=== PATIENT | male | born 1950 | race Hispanic/Latino ===

== ENCOUNTER 2024-07-11 13:22 | Emergency (ER) | payer OTHER ==
--- NOTE | 2024-07-11 14:19 | RAD REPORT ---
EXAMINATION: CT HEAD WITHOUT CONTRAST CT CERVICAL SPINE WITHOUT CONTRAST CLINICAL INDICATION: Head and neck injury status post fall. Head and neck pain TECHNIQUE: Axial CT images from the skull base to the vertex without intravenous contrast. Axial CT i mages through the cervical spine were obtained without intravenous contrast. Sagittal and coronal reformatted images were created from the data set. Coronal and sagittal reformatted images were creat ed from the data set. One or more of the following dose reduction techniques were used: Automated exposure control, adjustment of the mA and/or kV according to patient size, and/or iterative reconstr uction. Unless otherwise specified, incidental findings do not require dedicated imaging follow-up. [id number]. Comparison: none FINDINGS: Intracranial bleed not noted. Ventricles are normal in caliber. No significant hypodensity within the brain No extra-axial fluid collection. No fluid within the sinuses/mastoids No fracture or dislocation is seen involving the cervical spine. Mild posterior subluxation C4 on C5, C5 on C6 and C6-C7. 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 If the patient continues to have symptoms to suggest acute [employer]OPMENT [employer]/spinal pathology then MRI would be rec ommended
[2024-07-11] MEDS ORDERED: MORPHINE *EXTENDED RELEASE* 15 MG TAB PO ONE (14:28)
[2024-07-11] MEDS ORDERED: TDAP (DIPHTH,PERTUSS(ACELL),TET VAC) 0.5 ML VIAL IMVAC ONE (14:28)
--- NOTE | 2024-07-11 14:36 | RAD REPORT ---
Exam:Hip Left 2 View HISTORY: Left hip pain FINDINGS: No fracture or dislocation seen If the patient continues to have symptoms to suggest an occult fracture then MRI would be recommended
--- NOTE | 2024-07-11 14:37 | RAD REPORT ---
Exam:Knee Left 3 View HISTORY: Left knee pain FINDINGS: No fracture or dislocation seen Moderate to marked osteoarthritis involves slightly. Mild lateral subluxation of tibia on the femur. [id number] joint effusion
--- NOTE | 2024-07-11 14:38 | RAD REPORT ---
Exam:Ankle Left 3 View HISTORY: left ankle pain FINDINGS: No fracture or dislocation is seen Large calcaneal spurs
--- NOTE | 2024-07-11 16:41 | EDPHYS ---
Physician Documentation [facility] Name: Lauro Lees Jr Age: 74 yrs Sex: Male : 1950 Arrival Date: 07/11/2024 Time: 13:22 Bed 19 Private MD: ED Physician James Greene HPI: 07/11 16:30 This 74 yrs old Male presents to ER via Wheelchair with complaints of Fall ms3 Injury. 16:30 74-year-old male with no past medical history presents to the emergency department ms3 after tripping over the curb and falling. Patient states he is having left ankle, left hip, left knee pain. Patient states he did strike his head on the building.. Historical: - Allergies: 13:57 No Known Allergies; iw - Immunization history:: Adult Immunizations up to date. - Infectious Disease History:: Denies. - Social history:: Smoking status: Patient denies any tobacco usage or history of. ROS: 16:30 Constitutional: Negative for fever, and chills. Neck: Negative for injury, pain, and ms3 swelling, Cardiovascular: Negative for chest pain, and palpitations. Respiratory: Negative for shortness of breath, cough, wheezing, and pleuritic chest pain, Abdomen/GI: Negative for abdominal pain, nausea, vomiting, diarrhea, and constipation, 16:30 MS/extremity: Positive for pain, tenderness, Exam: 16:30 Constitutional: This is a well developed, well nourished patient who is awake, alert, ms3 and in no acute distress. Head/Face: Normocephalic, atraumatic. Chest/axilla: Normal chest wall appearance and motion. Nontender with no deformity. Cardiovascular: Regular rate and rhythm with a normal S1 and S2. No gallops, murmurs, or rubs. Normal PMI, no JVD. No pulse deficits. Respiratory: Lungs have equal breath sounds bilaterally, clear to auscultation and percussion. No rales, rhonchi or wheezes noted. No increased work of breathing, no retractions or nasal flaring. Abdomen/GI: Soft, non-tender, with normal bowel sounds. No distension or tympany. No guarding or rebound. No evidence of tenderness throughout. 16:30 Skin: injury, abrasion(s), small abrasion noted, of the Left ankle and left knee, Vital Signs: 13:56 BP 164 / 72; Pulse 73; Resp 16; Temp 98.1; Pulse Ox 95% on R/A; Weight 95.25 kg; Height iw 5 ft. 11 in. ; Pain 2/10; 16:45 BP 156 / 70; Pulse 70; Resp 16; Pulse Ox 100% on R/A; mb9 13:56 Body Mass Index 29.29 (95.25 kg, 180.34 cm) iw 13:56 Pain Scale: Adult iw MDM: 13:35 Patient medically screened. ms3 16:30 Differential diagnosis: abrasion, closed head injury, contusion, fracture, sprain, ms3 strain. Data reviewed: vital signs, nurses notes, radiologic studies, and as a result, I will discharge patient. I considered the following discharge prescriptions or medication management in the emergency department Medications were administered in the Emergency Department. See MAR. Independent interpretation of the following test(s) in the Emergency Department. Counseling: I had a detailed discussion with the patient and/or guardian regarding the historical points, exam findings, and any diagnostic results supporting the discharge/admit diagnosis, radiology results. Special discussion: I discussed with the patient/guardian in detail that at this point there is no indication for admission to the hospital. It is understood, however, that if the symptoms persist or worsen the patient needs to return immediately for re-evaluation. ED course: Discussed x-rays and CT imaging with patient and his daughter. They understand agree with plan. All questions were answered. Return precautions discussed include worsening symptoms, or any other concerns.. 07/11 13:43 Order name: CT Head C Spine; Complete Time: 16:10 ms3 07/11 13:43 Order name: Hip Left 2 View XRAY; Complete Time: 16:10 ms3 07/11 13:43 Order name: Ankle Left 3 View XRAY; Complete Time: 16:10 ms3 07/11 13:43 Order name: Knee Left 3 View XRAY; Complete Time: 16:10 ms3 Administered Medications: 14:31 Drug: Boostrix Tdap IM 0.5 ml IM once; as a single dose {Note: 07/23/26 4799G mb9 Stevie.} Route: IM; Site: left deltoid; 15:58 Follow up: Response: No adverse reaction mb9 14:31 Drug: morphine PO 15 mg PO once Route: PO; mb9 15:58 Follow up: Response: No adverse reaction mb9 Disposition Summary: 07/11/24 16:41 Discharge Ordered Notes: Location: Home ms3 Condition: Stable ms3 Diagnosis - Fall on same level, unspecified ms3 - Pain in left knee ms3 - Pain in left ankle and joints of left foot ms3 Followup: ms3 - With: Kvng Whipple MD - When: 2 - 3 days - Reason: Recheck today's complaints Discharge Instructions: - Discharge Summary Sheet ms3 - Musculoskeletal Pain ms3 - Ankle Pain ms3 Forms: - Medication Reconciliation Form ms3 - Antibiotic Education ms3 - Prescription Opioid Use ms3 - Patient Portal Instructions ms3 - Leadership Thank You Letter ms3 Signatures: Dispatcher [employer] Torri Cabrera, James Hernandez RN, DO DO ms3 Natalee Melchor RN RN mb9
--- NOTE | 2024-07-11 16:41 | ER ---
Nurse's Notes [facility] [place] Name: Lauro Lees Jr Age: 74 yrs Sex: Male : 1950 Arrival Date: 07/11/2024 Time: 13:22 Bed 19 Private MD: Diagnosis: Fall on same level, unspecified;Pain in left knee;Pain in left ankle and joints of left foot Presentation: 07/11 13:37 Chief complaint: Patient states: fall after tripping over a curb, fell on left side, iw did not pass out. 13:37 Acuity: RITCHIE 3 iw 13:56 Coronavirus screen: At this time, the client does not indicate any symptoms associated iw with coronavirus-19. Ebola Screen: No symptoms or risks identified at this time. Initial Sepsis Screen: Does the patient meet any 2 criteria? No. Patient's initial sepsis screen is negative. Does the patient have a suspected source of infection? No. Patient's initial sepsis screen is negative. Risk Assessment: Do you want to hurt yourself or someone else? Patient reports no desire to harm self or others. Onset of symptoms was July 11, 2024. 13:56 Method Of Arrival: Wheelchair iw Historical: - Allergies: 13:57 No Known Allergies; iw - Immunization history:: Adult Immunizations up to date. - Infectious Disease History:: Denies. - Social history:: Smoking status: Patient denies any tobacco usage or history of. Screenin:[facility] ED Fall Risk Assessment (Adult) History of falling in the last 3 months, mb9 including since admission Yes- single mechanical fall (1 pt) Confusion or Disorientation No (0 pts) Intoxicated or Sedated No (0 pts) Impaired Gait No (0 pts) Mobility Assist Device Used No (0 pt) Altered Elimination No (0 pt) Score/Fall Risk Level 3 or more points = High Risk Oriented to surroundings, Maintained a safe environment, Educated pt \T\ family on fall prevention, incl call for assistance when getting out of bed. Abuse screen: Denies threats or abuse. Nutritional screening: No deficits noted. Tuberculosis screening: No symptoms or risk factors identified. Assessment: 14:32 General: Appears in no apparent distress. Behavior is calm, cooperative. Pain: mb9 Complains of pain in face, pelvis and left leg. Neuro: Rankin Agitation-Sedation Scale (RASS): 0 - Alert and Calm Level of Consciousness is awake, alert, obeys commands, Oriented to person, place, time, situation, Appropriate for age. Neuro: Pupils are PERRLA. Cardiovascular: Patient's skin is warm and dry. Respiratory: Airway is patent Respiratory effort is even, unlabored, Respiratory pattern is regular, symmetrical. GI: No signs and/or symptoms were reported involving the gastrointestinal system. : No signs and/or symptoms were reported regarding the genitourinary system. EENT: No signs and/or symptoms were reported regarding the EENT system. Derm: Skin is pink, warm \T\ dry. Musculoskeletal: Range of motion: intact in all extremities. 15:58 Reassessment: Patient appears in no apparent distress at this time. No changes from mb9 previously documented assessment. Patient and/or family updated on plan of care and expected duration. Pain level reassessed. 16:44 Reassessment: No changes from previously documented assessment. Patient and/or family mb9 updated on plan of care and expected duration. Pain level reassessed. Patient is alert, oriented x 3, equal unlabored respirations, skin warm/dry/pink. Vital Signs: 13:56 BP 164 / 72; Pulse 73; Resp 16; Temp 98.1; Pulse Ox 95% on R/A; Weight 95.25 kg; Height iw 5 ft. 11 in. ; Pain 2/10; 16:45 BP 156 / 70; Pulse 70; Resp 16; Pulse Ox 100% on R/A; mb9 13:56 Body Mass Index 29.29 (95.25 kg, 180.34 cm) iw 13:56 Pain Scale: Adult iw ED Course: 13:24 Patient arrived in ED. mg5 13:25 James Greene DO is Attending Physician. ms3 13:38 Triage completed. iw 14:05 CT Head C Spine In Process Unspecified. EDMS 14:24 Hip Left 2 View XRAY In Process Unspecified. EDMS 14:24 Ankle Left 3 View XRAY In Process Unspecified. EDMS 14:24 Natalee Melchor, NANCY is Primary Nurse. mb9 14:24 Knee Left 3 View XRAY In Process Unspecified. EDMS 14:33 Bed in low position. Call light in reach. Side rails up X 1. Provided Education on: mb9 press call light if needing anything. Client placed on continuous cardiac and pulse oximetry monitoring. NIBP monitoring applied. 14:33 Arm band placed on. mb9 14:33 No provider procedures requiring assistance completed. mb9 16:40 Kvng Whipple MD is Referral Physician. ms3 16:44 Patient did not have IV access during this emergency room visit. mb9 Administered Medications: 14:31 Drug: Boostrix Tdap IM 0.5 ml IM once; as a single dose {Note: 07/23/26 4799G mb9 RunTitle.} Route: IM; Site: left deltoid; 15:58 Follow up: Response: No adverse reaction mb9 14:31 Drug: morphine PO 15 mg PO once Route: PO; mb9 15:58 Follow up: Response: No adverse reaction mb9 Medication: 14:33 VIS not applicable for this client. mb9 Outcome: 16:41 Discharge ordered by . ms3 16:45 Discharged to home via wheelchair, with family, mb9 16:45 Condition: stable 16:45 Discharge instructions given to patient, Instructed on discharge instructions, follow up and referral plans. Demonstrated understanding of instructions, follow-up care, 16:45 Patient left the ED. mb9 Signatures: Dispatcher [employer] EDMS Torri Morrow RN RN iw James Greene DO DO ms3 Natalee Melchor RN RN mb9 [place] mg5 Corrections: (The following items were deleted from the chart) 13:57 13:37 Chief complaint: Patient states: fall after tripping over a curb emilie phan
[2024-07-11 16:51] VITALS: TEMP 98.1
[2024-07-11 16:52] VITALS: BP 156/70; O2SAT 100
== END 2024-07-11 16:45 | disposition home or self-care (01) ==
LOC: ER 13:22
DX: M25.572 Pain in left ankle and joints of left foot (principal); M25.562 Pain in left knee; S90.512A Abrasion, left ankle, initial encounter; S80.212A Abrasion, left knee, initial encounter; W18.30XA Fall on same level, unspecified, initial encounter
CPT/HCPCS: 70450; 72125; 96372; 99284